=== PATIENT | female | born 1955 | race Caucasian/White ===

== ENCOUNTER → 2022-09-21 | Outpatient (CLI) | payer MEDICARE ==
[~2022-09-21] MED LIST: ASPIRIN325 MG PO; CELEBREX200 MG PO; CIPRO500 MG PO; COD LIVER OIL PO; DAILY VITAMIN1 EAC3 PO; DIOVAN160 MG PO; GABAPENTIN100 MG PO; GLUCOSAMINE &1 EAC1 PO; HYDROCODON-ACE1 EA11 PO; IBUPROFEN400 MG PO; KEFLEX500 MG PEG; LINZESS PO; METFORMIN HCL500 MG PO; NASACORT; OMEPRAZOLE40 MG PO; SIMVASTATIN40 MG PO; SUPER B-COMPLEX PO; TOPIRAMATE100 MG PO; ULTRAM50 MG PO; [UNRECOGNIZED DRUG - OTHER] PO
== END ==
LOC: RAD 10:16
PROVIDERS: ATTEND Student in an Organized Health Care Education/Training Program
DX: Z01.811 Encounter for preprocedural respiratory examination (principal)
CPT/HCPCS: 71046

== ENCOUNTER 2022-10-03 08:13 | Observation (INO) | payer MEDICARE ==
[~2022-10-03] VITALS: Ht 160 cm; Wt 68.9 kg
[~2022-10-03 08:13] MED LIST changes: +CRESTOR10 MG PO; +FIBER TABS625 MG PO; +HYDROCODON-ACE1 EA12 PO; +LOSARTAN POTASS50 MG PO; +MELATONIN5 M2 PO; +METOPROLOL SUCC25 MG PO; +SUCRALFATE1 GM PO
[2022-10-03] MEDS ORDERED: CELECOXIB 200 MG CAP ONE (09:07)
[2022-10-03] MEDS ORDERED: DEXAMETHASONE SOD PHOS 10 MG/1 ML VIAL ONE (09:07)
[2022-10-03] MEDS ORDERED: GABAPENTIN 300 MG CAP ONE (09:07)
[2022-10-03] MEDS ORDERED: SODIUM CHLORIDE 0.9% 500ML 500 ML ONE (09:39)
[2022-10-03] MEDS ORDERED: TRANEXAMIC ACID 20 ML ONE (09:39)
[2022-10-03] MEDS ORDERED: Vancomycin IV 1,000 MG ONE (09:39)
[2022-10-03] MEDS ORDERED: HYDROMORPHONE 1MG/1ML INJ ONE (10:06)
[2022-10-03] MEDS ORDERED: DOCUSATE SODIUM 100 MG CAP PO PRN (11:15)
[2022-10-03] MEDS ORDERED: HYDROCODONE/APAP 5MG-325MG TAB PO PRN (11:15)
[2022-10-03] MEDS ORDERED: DIPHENHYDRAMINE HCL INJ 50 MG/ML VIAL IV PRN (11:15)
[2022-10-03] MEDS ORDERED: HYDROCODONE/APAP 7.5MG-325MG 1 EA TAB PO PRN (11:15)
[2022-10-03] MEDS ORDERED: ONDANSETRON HCL INJ 2MG/ML 2ML 2 MG/ML VIAL IV PRN (11:15)
[2022-10-03] MEDS ORDERED: FENTANYL CITRATE/PF 100MCG/2 ML INJ ONE (11:56)
[2022-10-03] MEDS ORDERED: NEOSTIGMINE 1 MG/ML 10ML VIAL ONE (12:56)
[2022-10-03] MEDS ORDERED: ONDANSETRON HCL INJ 2MG/ML 2ML 2 MG/ML VIAL ONE (12:56)
[2022-10-03] MEDS ORDERED: LIDOCAINE HCL 2% LOCAL INJ 5 ML SDV VIAL INJ ONE (12:56)
[2022-10-03] MEDS ORDERED: GLYCOPYRROLATE INJ 0.2 MG/ML VIAL ONE (12:56)
[2022-10-03] MEDS ORDERED: SEVOFLURANE INHAL SOLN 250 ML PEN BTL ONE (12:56)
[2022-10-03] MEDS ORDERED: POVIDONE IODINE 0.05% 0.05 % ML PO ONE (12:56)
[2022-10-03] MEDS ORDERED: ROCURONIUM BROMIDE 10 MG/ML 5ML VIAL IV ONE (12:56)
[2022-10-03] MEDS ORDERED: PROPOFOL IV EMULSION 10 MG/ML 20 ML VIAL ONE (12:56)
[2022-10-03 13:00] VITALS: BP 156/76
[2022-10-03] MEDS ORDERED: ROPIVACAINE 0.5% 5 MG/ML 30 ML SDV ONE (13:06)
[2022-10-03] MEDS ORDERED: EPINEPHRINE HCL 1:1000 1ML 1 MG/ML AMP ONE (13:06)
[2022-10-03 13:07] VITALS: BP 156/76
[2022-10-03 13:11] VITALS: BP 156/76
[2022-10-03] MEDS ORDERED: SODIUM CHLORIDE 0.9% 1000ML 1,000 ML IV SCH (13:15)
[2022-10-03 15:49] VITALS: BP 126/71
[2022-10-03] MEDS ORDERED: ASPIRIN81 MG PO (16:03)
[2022-10-03] MEDS ORDERED: ASPIRIN 325 MG TAB PO SCH (17:00)
[2022-10-03] MEDS ORDERED: CELECOXIB 200 MG CAP PO SCH (17:00)
[2022-10-04] MEDS ORDERED: ACETAMINOPHEN 1000 MG/100 ML IV PRN (11:15)
== END 2022-10-03 17:22 | disposition home health service (06) ==
LOC: OR 08:13 → PACU V 11:17 → IMCU 12:38
PROVIDERS: ADMIT Specialist; ATTEND Specialist
DX: M16.12 Unilateral primary osteoarthritis, left hip (principal); E11.9 Type 2 diabetes mellitus without complications; I10 Essential (primary) hypertension; K21.9 Gastro-esophageal reflux disease without esophagitis; E78.5 Hyperlipidemia, unspecified; G43.909 Migraine, unspecified, not intractable, without status migrainosus; Z90.49 Acquired absence of other specified parts of digestive tract; Z96.641 Presence of right artificial hip joint; Z88.5 Allergy status to narcotic agent; Z88.8 Allergy status to other drugs, medicaments and biological substances; Z79.84 Long term (current) use of oral hypoglycemic drugs; Z01.812 Encounter for preprocedural laboratory examination; Z20.822 Contact with and (suspected) exposure to COVID-19
CPT/HCPCS: 0223U; 27130; 36415 ×2; 72170; 82948; 86850; 86900; 86920; 94799; 97110; 97116; 97161; 97530; C1713 ×2; C1776 ×3; G0378; J0171; J0690; J1100; J1170; J2001; J2405; J2704; J2710; J2795; J3010; J3370; J7040